=== PATIENT | female | born 2000 | race Caucasian/White ===

== ENCOUNTER 2020-01-20 20:25 | Emergency (ER) | payer SELFPAY ==
[2020-01-20] MEDS ORDERED: hydrOXYzine HCl 50 MG/ML SDV IM ONE (20:28)
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
[2020-01-20] MEDS ORDERED: Lidocaine 1% 30 ML SDV INJECT ONE (20:58)
[2020-01-20 21:07] LABS: CHLORIDE,CL 105 mmol/L (98-107); SODIUM,NA 141 mmol/L (136-145)
[2020-01-20 21:08] LABS: ANION GAP 18.7 mmol/L (10-20)
[2020-01-20 21:48] LABS: BUPRENORPHINE,URINE NEGATIVE (NEGATIVE); MARIJUANA,URINE POSITIVE (NEGATIVE); METHYLENEDIOXYMETHAMP,UR NEGATIVE (NEGATIVE); PHENCYCLIDINE,URINE NEGATIVE (NEGATIVE)
--- NOTE | 2020-01-21 09:37 | CR ---
[id number] RAD/RAD Cervical Spine 1V Exam: RAD Cervical Spine 1V Clinical Data: TRAUMA COMPARISON: NO PREVIOUS SIMILAR EXAM IS AVAILABLE FINDINGS: A lateral view only was obtained No fracture or subluxation is seen The prevertebral soft tissues are unremarkable IMPRESSION: NO FRACTURE OR SUBLUXATION LIMITED STUDY Red Barahona MD 01/21/20 0936 Thank you for allowing us to participate in the care of your patient.
== END 2020-01-20 21:44 | disposition home or self-care (01) ==
LOC: VM.ED 20:25
DX: S51.011A Laceration without foreign body of right elbow, initial encounter (principal); S41.111A Laceration without foreign body of right upper arm, initial encounter; F41.9 Anxiety disorder, unspecified; R06.4 Hyperventilation; F10.10 Alcohol abuse, uncomplicated; Y90.6 Blood alcohol level of 120-199 mg/100 ml; V48.6XXA Car passenger injured in noncollision transport accident in traffic accident, initial encounter
CPT/HCPCS: 12002; 36415; 72020; 80053; 80305; 80307; 85025; 96372; 99284; J2001; J3410; 99283-GF